=== PATIENT | female | born 1970 | race Caucasian/White ===

== ENCOUNTER 2019-07-08 11:03 | Emergency (ER) | payer OTHER ==
[~2019-07-08] VITALS: Ht 157.5 cm; Wt 56.8 kg
[2019-07-08] MEDS ORDERED: ondansetron 4mg rapidly disintigrating tab PO ONE (11:45)
[2019-07-08] MEDS ORDERED: HYDROcodone/acetaminophen 5mg/325mg tablet PO ONE (13:35)
[2019-07-08] MEDS ORDERED: PENI500T2 PO (13:44)
[2019-07-08] MEDS ORDERED: CHLO473M3 PO (13:44)
[2019-07-08 14:06] VITALS: BP 120/74
== END 2019-07-08 14:08 | disposition home or self-care (01) ==
LOC: ER 11:04
DX: S02.5XXA Fracture of tooth (traumatic), initial encounter for closed fracture (principal); S06.9X0A Unspecified intracranial injury without loss of consciousness, initial encounter; R11.0 Nausea; R61 Generalized hyperhidrosis; Z98.890 Other specified postprocedural states; Z79.2 Long term (current) use of antibiotics; Z79.899 Other long term (current) drug therapy; X58.XXXA Exposure to other specified factors, initial encounter; Y93.89 Activity, other specified; Y92.89 Other specified places as the place of occurrence of the external cause; Y99.8 Other external cause status
CPT/HCPCS: 99283

== ENCOUNTER 2020-01-01 16:22 | Inpatient (IN) | payer OTHER ==
[2020-01-01] VITALS (8 sets, daily range): BP systolic 132–149; BP diastolic 68–80
[~2020-01-01] VITALS: Ht 160 cm; Wt 56.8 kg
[~2020-01-01 16:22] MED LIST: CHLO473M3 PO
[2020-01-01] MEDS ORDERED: ketorolac trometh. 30mg/ml inj. IV ONE (18:35)
[2020-01-01] MEDS ORDERED: fentaNYL/PF 50MCG/1 ML 2ML syringe IV ONE (18:35)
[2020-01-01] MEDS ORDERED: diphenhydrAMINE 50 mg/ml inj IV ONE (18:35)
[2020-01-01] MEDS ORDERED: metoclopramide 5 mg/ml inj IV ONE (18:35)
[2020-01-01] MEDS ORDERED: normal saline 1000ML IV soln IVB ONE ×2 (18:35)
[2020-01-01] MEDS ORDERED: ceFOXitin 2GM-NS 100mL ADDvant 100 ML IV ONE (19:00)
[2020-01-01 19:22] LABS: BASOPHILS % (AUTO) 0.1 % (0-1); EOSINOPHILS % (AUTO) 0 % (0-6); HEMATOCRIT 35.9 % (35.0-45.0); HEMOGLOBIN 11.1 g/dl (12.0-16.0); LYMPHOCYTES # (AUTO) 0.6 X10'3 (1.1-4.8); LYMPHOCYTES % (AUTO) 2.8 % (21-51); MEAN CORPUSCULAR HEMOGLOBIN 22.1 PG (27.0-31.0); MEAN CORPUSCULAR HGB CONC 30.9 g/dL (33.0-36.5); MEAN CORPUSCULAR VOLUME 71.5 FL (78-98); MONOCYTES # (AUTO) 0.7 X10'3 (0-0.9); MONOCYTES % (AUTO) 3.1 % (2-12); NEUTROPHILS # (AUTO) 20.2 X10'3 (1.8-7.7); PLATELET COUNT 502 X10'3 (140-440); RED BLOOD COUNT 5.02 X10'6 (4.20-5.60); RED CELL DISTRIBUTION WIDTH 17.2 % (11.5-14.5); WHITE BLOOD COUNT 21.5 X10'3 (4.5-11.0)
[2020-01-01] MEDS ORDERED: ringers solution, lacted 1,000 ML IV SCH (19:30)
[2020-01-01] MEDS ORDERED: morphine 4 MG/ML inj SYRINge IV PRN (19:30)
[2020-01-01] MEDS ORDERED: hydrALAZINE 20mg/ml inj. IV PRN (19:30)
[2020-01-01] MEDS ORDERED: fentaNYL/PF 50MCG/1 ML 2ML syringe IV PRN (19:30)
[2020-01-01] MEDS ORDERED: ondansetron/PF 4mg/2ml inj IV PRN (19:30)
[2020-01-01] MEDS ORDERED: morphine 2 MG/ML inj. syringe IV PRN (19:30)
[2020-01-01] MEDS ORDERED: labetalol 20mg/4ml (5mg/ml) syringe IV PRN (19:30)
[2020-01-01] MEDS ORDERED: ringers solution, lacted 1,000 ML IV ONE (19:30)
[2020-01-01 19:40] LABS: ALANINE AMINOTRANSFERASE 26 U/L (12-78); ALBUMIN 3.8 G/DL (3.4-5.0); ALKALINE PHOSPHATASE 64 IU/L (46-116); ANION GAP 9 (8-16); ASPARTATE AMINO TRANSFERASE 21 U/L (10-37); BILIRUBIN,TOTAL 1.2 MG/DL (0.1-1.0); BLOOD UREA NITROGEN 20 MG/DL (7-18); BUN/CREATININE RATIO 26.7 (6.6-38.0); CALCIUM 9.4 MG/DL (8.5-10.1); CHLORIDE 95 MMOL/L (99-107); CREATININE 0.75 MG/DL (0.40-0.90); GLUCOSE 161 MG/DL (70-104); POTASSIUM 3.6 MMOL/L (3.5-5.1); SODIUM 129 MMOL/L (135-145); TOTAL CARBON DIOXIDE 24.9 MMOL/L (24-32); TOTAL PROTEIN 7.8 G/DL (6.4-8.2); eGFR 82 ML/MIN
[2020-01-01 19:47] LABS: LIPASE 1444 U/L (73-393)
[2020-01-01] MEDS ORDERED: acetaminophen 325mg tablet PO PRN (19:50)
[2020-01-01] MEDS ORDERED: potassium CL 10mEq/100ml bag 100 ML IV PRN ×2 (19:50)
[2020-01-01] MEDS ORDERED: LIDOcaine 2% 10ml TOPICAL JELLY (Urojet) TP ONE (19:50)
[2020-01-01] MEDS ORDERED: magnesium Cl slow-release 64mg tablet PO PRN (19:50)
[2020-01-01] MEDS ORDERED: magnesium 2GM in 50ml NS 50 ML IV PRN (19:50)
[2020-01-01] MEDS ORDERED: potassium Cl 20 mEq SR tablet PO PRN (19:50)
[2020-01-01] MEDS ORDERED: magnesium 4gm in 100ml NS 100 ML IV PRN (19:50)
[2020-01-01 20:06] LABS: URINE HCG NEGATIVE (NEG)
[2020-01-01 20:13] LABS: CLARITY,URINE SLIGHTLY CLOUDY (Clear); COLOR,URINE YELLOW (Yellow); GLUCOSE, URINE NEGATIVE (Neg); KETONES,URINE 15 mg/dl (Neg); LEUKOCYTE ESTERASE ,URINE NEGATIVE (Neg); NITRITES, URINE NEGATIVE (Neg); OCCULT BLOOD,URINE NEGATIVE (Neg); PROTEIN,URINE 30 mg/dl (Neg); UROBILINOGEN,URINE 0.2 E.U/dL (0.2-1.0)
[2020-01-01 20:18] LABS: UA COLLECTION TYPE FOLEY CATH
[2020-01-01 20:41] LABS: BACTERIA,URINE FEW /HPF (Neg); RBC,URINE NONE SEEN /HPF (0-2); SQUAMOUS EPITHELIAL CELL,UR MANY /LPF (FEW); WBC,URINE 0-4 /HPF (0-4)
[2020-01-01] MEDS ORDERED: fentaNYL/PF 50MCG/1 ML 2ML syringe ONE ×2 (21:15→22:09)
[2020-01-01] MEDS ORDERED: midazolam 2 mg/2 ml injection ONE (21:15)
[2020-01-01] MEDS ORDERED: glycopyrrolate 0.2mg/ml inj ONE (21:35)
[2020-01-01] MEDS ORDERED: neostigmine methylsulfate 1 MG/ML 10ml vial ONE (21:35)
[2020-01-01] MEDS ORDERED: sevoflurane 250ml liquid IH ONE (21:35)
[2020-01-01] MEDS ORDERED: sugammadex 200mg/2ml injection IV ONE (22:12)
[2020-01-01] MEDS ORDERED: ondansetron/PF 4mg/2ml inj ONE (22:14)
[2020-01-01] MEDS ORDERED: LIDOcaine 2% (20mg/ml) 5ml vial ONE (22:14)
[2020-01-01] MEDS ORDERED: rocuronium 10mg/ml inj IV ONE (22:14)
[2020-01-01] MEDS ORDERED: propofol inj 20 ML IV ONE (22:14)
[2020-01-01] MEDS ORDERED: dexamethasone sod phosphate 4mg/ml inj. ONE (22:14)
[2020-01-01] MEDS ORDERED: ATI1T PO (22:23)
--- NOTE | 2020-01-01 22:47 | NUR ---
RECEIVED FROM OR VIA BED WITH OHTF ACCOMPANIED BY ANESTHESIOLOGIST DR ANTONIO, REPORT GIVEN. PT DROWSY BUT AROUSES WITH NO COMPLAINT OF PAIN. 20 GAUGE PIV R AC PATENT AND RUNNING LR AT 100 ML/HR. [place] DRESSING CDI, ABD SOFT, PPULSES PALPABLE, BRISK CAP REFILL, HAMMOND, VSS, SCDS APPLIED, F/C DRAINING CLEAR YELLOW FLUID. RESTING COMFORTABLY
[2020-01-01] MEDS: fentaNYL/PF 50MCG/1 ML 2ML syringe IV PRN ×2 (23:17→23:24)
--- NOTE | 2020-01-01 23:37 | NUR ---
TRANSFERRED VIA BED WITH OHTF ACCOMPANIED BY MYSELF, REPORT GIVEN. PT AWAKE AND ALERT WITH COMPLAINT OF PAIN AT LEVEL 5. 20 GAUGE PIV R AC PATENT AND RUNNING LR AT 100 ML/HR. [place] DRESSING CDI, ABD SOFT, PPULSES PALPABLE, BRISK CAP REFILL, HAMMOND, VSS, SCDS APPLIED, F/C DRAINING CLEAR YELLOW FLUID. LEFT IN CARE OF CHINA AMEZQUITA
[2020-01-02] VITALS (9 sets, daily range): BP systolic 127–148; BP diastolic 65–84
[2020-01-02] MEDS: HYDROmorphone inj. 0.5 MG/0.5 ML DISP.SYRIN IV PRN ×3 (00:18→08:04)
[2020-01-02] MEDS: pantoprazole 40MG/NS 100ML BAG 100 ML IV SCH ×6 (00:18→21:34)
[2020-01-02] MEDS: K and/or MAG REPLACEMENT MC SCH ×3 (00:28→20:00)
[2020-01-02] MEDS: ondansetron/PF 4mg/2ml inj IV PRN ×3 (03:53→18:46)
[2020-01-02] MEDS: normal saline 1000ml 1,000 ML IV SCH ×4 (03:58→21:32)
--- NOTE | 2020-01-02 06:31 | NUR ---
Problems reprioritized. Patient report given, questions answered & plan of care reviewed with BIA HAINES.
--- NOTE | 2020-01-02 06:41 | NUR ---
Patient in room ORTHO 4016. I have received report from BIA ATKINSON and had the opportunity to ask questions and assume patient care.
[2020-01-02 06:47] LABS: BASOPHILS % (AUTO) 0.1 % (0-1); EOSINOPHILS % (AUTO) 0 % (0-6); HEMATOCRIT 28.6 % (35.0-45.0); LYMPHOCYTES # (AUTO) 0.5 X10'3 (1.1-4.8); LYMPHOCYTES % (AUTO) 2.7 % (21-51); MEAN CORPUSCULAR HEMOGLOBIN 22.4 PG (27.0-31.0); MEAN CORPUSCULAR HGB CONC 31.4 g/dL (33.0-36.5); MEAN CORPUSCULAR VOLUME 71.4 FL (78-98); MEAN PLATELET VOLUME 7.8 FL (7.4-10.4); MONOCYTES # (AUTO) 0.7 X10'3 (0-0.9); NEUTROPHILS # (AUTO) 16.5 X10'3 (1.8-7.7); NEUTROPHILS % (AUTO) 93.2 % (42-75); PLATELET COUNT 378 X10'3 (140-440); RED CELL DISTRIBUTION WIDTH 17.1 % (11.5-14.5); WHITE BLOOD COUNT 17.7 X10'3 (4.5-11.0)
[2020-01-02 07:10] LABS: ALANINE AMINOTRANSFERASE 29 U/L (12-78); ALBUMIN 2.7 G/DL (3.4-5.0); ALBUMIN/GLOBULIN RATIO 0.8 (1.1-1.5); ALKALINE PHOSPHATASE 44 IU/L (46-116); ANION GAP 7 (8-16); ASPARTATE AMINO TRANSFERASE 32 U/L (10-37); BILIRUBIN,TOTAL 0.7 MG/DL (0.1-1.0); BLOOD UREA NITROGEN 13 MG/DL (7-18); BUN/CREATININE RATIO 23.2 (6.6-38.0); CALCIUM 7.7 MG/DL (8.5-10.1); CHLORIDE 101 MMOL/L (99-107); CREATININE 0.56 MG/DL (0.40-0.90); GLUCOSE 149 MG/DL (70-104); MAGNESIUM 1.7 MG/DL (1.5-2.4); POTASSIUM 3.5 MMOL/L (3.5-5.1); SODIUM 134 MMOL/L (135-145); TOTAL CARBON DIOXIDE 25.6 MMOL/L (24-32); eGFR > 90 ML/MIN
--- NOTE | 2020-01-02 08:32 | NUR ---
Page Sent PAGER ID: [phone] MESSAGE: YANCY [id number]: [id number] [address]...ZOFRAN NOT WORKING, PT STILL NAUSEOUS, CAN I GET AN ORDER FOR ANOTHER ANTI-NAUSEA MED? THANK YOU
[2020-01-02] MEDS ORDERED: proCHLORperazine 10 MG/2 ml inj IV PRN (08:45)
[2020-01-02] MEDS ORDERED: acetaminophen 325mg tablet PO PRN (10:40)
--- NOTE | 2020-01-02 11:13 | NUR ---
Student documentation: I have reviewed all interventions, assessments performed and documented by Rizwana Urbano [place]. Student Medication Administration: For this medication-pass time frame, all medication were reviewed, dispensed, administered and documented per hospital policy by Rizwana LÓPEZ [facility].
[2020-01-02] MEDS: HYDROmorphone 1 mg/ml syringe IV PRN ×3 (12:16→22:25)
--- NOTE | 2020-01-02 15:24 | NUR ---
Problems reprioritized. Patient report given, questions answered & plan of care reviewed with BIA Carlson on surgical unit. Pt belongings gathered and pt was wheeled to surgical unit in stable condition.
--- NOTE | 2020-01-02 16:00 | NUR ---
Pt. transfer to surgical unit. Vitals taken, pt. repositioned and made comfortable. Water provided and call light put in reach. Pt. orientated to room and a physical assessment completed by primary RN.
--- NOTE | 2020-01-02 17:30 | NUR ---
Pt. stated SOB. She stated it was related to pain, but requested for oxygen to be placed on her. Explained to pt. that 02 is a medication and that we cannot just place it on her. Took vital signs however and they were stable. No oxygen placed on pt. On reassessment after pain medication, pt. stated her SOB had gone away.
--- NOTE | 2020-01-02 18:15 | NUR ---
Gave report to Sanjeev AMEZQUITA. Pt. in room in her bed at this time.
--- NOTE | 2020-01-02 18:39 | NUR ---
Patient in room JENNIFER 345. I have received report from BIA Dan and had the opportunity to ask questions and assume patient care.
[2020-01-02] MEDS: LORazepam 2 mg/ml vial IV PRN (23:03)
[2020-01-03] MEDS: pantoprazole 40MG/NS 100ML BAG 100 ML IV SCH ×6 (01:00→22:54)
[2020-01-03] MEDS: normal saline 1000ml 1,000 ML IV SCH ×3 (02:11→21:49)
[2020-01-03] MEDS: HYDROmorphone 1 mg/ml syringe IV PRN ×4 (04:04→22:55)
[2020-01-03] MEDS: ondansetron/PF 4mg/2ml inj IV PRN ×3 (04:12→17:56)
[2020-01-03 05:11] LABS: ALANINE AMINOTRANSFERASE 28 U/L (12-78); ALBUMIN 2.4 G/DL (3.4-5.0); ALBUMIN/GLOBULIN RATIO 0.8 (1.1-1.5); ALKALINE PHOSPHATASE 48 IU/L (46-116); ANION GAP 7 (8-16); ASPARTATE AMINO TRANSFERASE 52 U/L (10-37); BILIRUBIN,TOTAL 0.5 MG/DL (0.1-1.0); BLOOD UREA NITROGEN 9 MG/DL (7-18); BUN/CREATININE RATIO 20.5 (6.6-38.0); CALCIUM 7.6 MG/DL (8.5-10.1); CHLORIDE 103 MMOL/L (99-107); CREATININE 0.44 MG/DL (0.40-0.90); GLUCOSE 110 MG/DL (70-104); LIPASE 73 U/L (73-393); MAGNESIUM 1.6 MG/DL (1.5-2.4); POTASSIUM 3.2 MMOL/L (3.5-5.1); SODIUM 134 MMOL/L (135-145); TOTAL CARBON DIOXIDE 24.3 MMOL/L (24-32); TOTAL PROTEIN 5.6 G/DL (6.4-8.2); eGFR > 90 ML/MIN
[2020-01-03 05:27] LABS: BASOPHILS # (AUTO) 0.1 X10'3 (0-0.2); BASOPHILS % (AUTO) 0.4 % (0-1); EOSINOPHILS # (AUTO) 0.1 X10'3 (0-0.9); EOSINOPHILS % (AUTO) 0.7 % (0-6); HEMATOCRIT 24.4 % (35.0-45.0); HEMOGLOBIN 7.6 g/dl (12.0-16.0); LYMPHOCYTES # (AUTO) 0.9 X10'3 (1.1-4.8); LYMPHOCYTES % (AUTO) 7.4 % (21-51); MEAN CORPUSCULAR HEMOGLOBIN 22.5 PG (27.0-31.0); MEAN CORPUSCULAR HGB CONC 31.2 g/dL (33.0-36.5); MEAN CORPUSCULAR VOLUME 72.1 FL (78-98); MEAN PLATELET VOLUME 8.2 FL (7.4-10.4); MONOCYTES # (AUTO) 0.6 X10'3 (0-0.9); MONOCYTES % (AUTO) 5.3 % (2-12); NEUTROPHILS # (AUTO) 10.1 X10'3 (1.8-7.7); NEUTROPHILS % (AUTO) 86.2 % (42-75); PLATELET COUNT 324 X10'3 (140-440); RED BLOOD COUNT 3.38 X10'6 (4.20-5.60); RED CELL DISTRIBUTION WIDTH 17.5 % (11.5-14.5); WHITE BLOOD COUNT 11.8 X10'3 (4.5-11.0)
--- NOTE | 2020-01-03 06:19 | NUR ---
Problems reprioritized. Patient report given, questions answered & plan of care reviewed with BIA Paez.
--- NOTE | 2020-01-03 06:30 | NUR ---
Patient in room JENNIFER 345. I have received report from BIA Pace and had the opportunity to ask questions and assume patient care.
[2020-01-03 07:00] VITALS: BP 136/83
[2020-01-03] MEDS: K and/or MAG REPLACEMENT MC SCH ×2 (07:31→20:00)
[2020-01-03] MEDS: potassium Cl 20 mEq SR tablet PO PRN ×3 (07:35→17:02)
[2020-01-03 10:14] LABS: HEMATOCRIT 23.9 % (35.0-45.0); HEMOGLOBIN 7.3 g/dl (12.0-16.0); MEAN CORPUSCULAR HGB CONC 30.6 g/dL (33.0-36.5); MEAN CORPUSCULAR VOLUME 71.8 FL (78-98); MEAN PLATELET VOLUME 7.6 FL (7.4-10.4); PLATELET COUNT 315 X10'3 (140-440); RED BLOOD COUNT 3.32 X10'6 (4.20-5.60); RED CELL DISTRIBUTION WIDTH 17.3 % (11.5-14.5)
[2020-01-03 10:46] VITALS: BP 130/83
[2020-01-03 11:00] VITALS: BP 130/83
[2020-01-03] MEDS: LORazepam 2 mg/ml vial IV PRN (13:18)
[2020-01-03 16:19] LABS: HEMATOCRIT 23.8 % (35.0-45.0); HEMOGLOBIN 7.5 g/dl (12.0-16.0); MEAN CORPUSCULAR HEMOGLOBIN 22.7 PG (27.0-31.0); MEAN CORPUSCULAR HGB CONC 31.5 g/dL (33.0-36.5); MEAN CORPUSCULAR VOLUME 72.1 FL (78-98); MEAN PLATELET VOLUME 7.7 FL (7.4-10.4); PLATELET COUNT 306 X10'3 (140-440); RED CELL DISTRIBUTION WIDTH 17.1 % (11.5-14.5); WHITE BLOOD COUNT 11.1 X10'3 (4.5-11.0)
--- NOTE | 2020-01-03 16:25 | NUR ---
Student documentation: I have reviewed all interventions, assessments performed and documented by Renee KIRK from [facility].
--- NOTE | 2020-01-03 16:26 | NUR ---
Student documentation: I have reviewed all interventions, assessments performed and documented by Benoit KIRK from [facility].
--- NOTE | 2020-01-03 18:31 | NUR ---
Problems reprioritized. Patient report given, questions answered & plan of care reviewed with Pily Nascimento RN.
--- NOTE | 2020-01-03 18:35 | NUR ---
Patient in room JENNIFER 345. I have received report from NICOLAS AMEZQUITA and had the opportunity to ask questions and assume patient care.
[2020-01-04] VITALS (8 sets, daily range): BP systolic 139–157; BP diastolic 81–91
[2020-01-04] MEDS: ondansetron/PF 4mg/2ml inj IV PRN ×2 (03:41→17:27)
[2020-01-04] MEDS: HYDROmorphone 1 mg/ml syringe IV PRN ×4 (03:45→21:52)
[2020-01-04] MEDS: pantoprazole 40MG/NS 100ML BAG 100 ML IV SCH ×4 (04:26→21:53)
[2020-01-04 06:00] LABS: BASOPHILS % (AUTO) 0.4 % (0-1); EOSINOPHILS # (AUTO) 0.1 X10'3 (0-0.9); EOSINOPHILS % (AUTO) 1.4 % (0-6); LYMPHOCYTES # (AUTO) 0.6 X10'3 (1.1-4.8); LYMPHOCYTES % (AUTO) 5.4 % (21-51); MEAN CORPUSCULAR HEMOGLOBIN 22.8 PG (27.0-31.0); MEAN CORPUSCULAR HGB CONC 31.9 g/dL (33.0-36.5); MEAN CORPUSCULAR VOLUME 71.7 FL (78-98); MEAN PLATELET VOLUME 7.9 FL (7.4-10.4); MONOCYTES # (AUTO) 0.7 X10'3 (0-0.9); MONOCYTES % (AUTO) 6.7 % (2-12); NEUTROPHILS # (AUTO) 8.8 X10'3 (1.8-7.7); NEUTROPHILS % (AUTO) 86.1 % (42-75); PLATELET COUNT 312 X10'3 (140-440); RED BLOOD COUNT 3.07 X10'6 (4.20-5.60); RED CELL DISTRIBUTION WIDTH 17.2 % (11.5-14.5); WHITE BLOOD COUNT 10.2 X10'3 (4.5-11.0)
[2020-01-04 06:13] LABS: ALANINE AMINOTRANSFERASE 32 U/L (12-78); ALBUMIN 2.2 G/DL (3.4-5.0); ALBUMIN/GLOBULIN RATIO 0.6 (1.1-1.5); ALKALINE PHOSPHATASE 48 IU/L (46-116); ANION GAP 6 (8-16); ASPARTATE AMINO TRANSFERASE 46 U/L (10-37); BILIRUBIN,TOTAL 0.6 MG/DL (0.1-1.0); BLOOD UREA NITROGEN 8 MG/DL (7-18); CALCIUM 7.7 MG/DL (8.5-10.1); CHLORIDE 105 MMOL/L (99-107); CREATININE 0.42 MG/DL (0.40-0.90); GLUCOSE 102 MG/DL (70-104); MAGNESIUM 1.9 MG/DL (1.5-2.4); POTASSIUM 3.5 MMOL/L (3.5-5.1); SODIUM 136 MMOL/L (135-145); TOTAL CARBON DIOXIDE 24.9 MMOL/L (24-32); TOTAL PROTEIN 5.6 G/DL (6.4-8.2); eGFR > 90 ML/MIN
--- NOTE | 2020-01-04 06:20 | NUR ---
Problems reprioritized. Patient report given, questions answered & plan of care reviewed with MELANIA AMEZQUITA.
--- NOTE | 2020-01-04 06:30 | NUR ---
PAGED DR. ANGELES TO INFORM CRITICAL H&H 7.0 AND 22.0 AWAITING CALL BACK FROM .
--- NOTE | 2020-01-04 06:49 | NUR ---
DR. ANGELES CALLED BACK WITH INSTRUCTION TO CALL HOSPITALIST IN AM WHETHER HE WANTS HER TRANSFUSED OR NOT. AM RN MADE AWARE TO ASK AM HOSPITALIST.
--- NOTE | 2020-01-04 07:10 | NUR ---
PAGER ID: [phone] MESSAGE: [phone] Alvaro S: H&H 7.0/.0 thanks! suri [phone]
[2020-01-04] MEDS: K and/or MAG REPLACEMENT MC SCH ×2 (07:11→19:43)
[2020-01-04] MEDS: LORazepam 2 mg/ml vial IV PRN (09:48)
[2020-01-04] MEDS: normal saline 1000ml 1,000 ML IV SCH ×2 (09:53→19:45)
--- NOTE | 2020-01-04 18:00 | NUR ---
Student Medication Administration: For this medication-pass time frame, all medication were reviewed, dispensed, administered and documented per hospital policy by SN EMIL. Student documentation: I have reviewed and agree with all interventions, assessments performed and documented by SN EMIL.
--- NOTE | 2020-01-04 18:15 | NUR ---
Problems reprioritized. Patient report given, questions answered & plan of care reviewed with BIA MONTEZ.
--- NOTE | 2020-01-04 18:43 | NUR ---
Patient in room JENNIFER 345. I have received report from BIA Tong and had the opportunity to ask questions and assume patient care.
[2020-01-04 19:46] LABS: HEMATOCRIT 25.8 % (35.0-45.0); HEMOGLOBIN 8.2 g/dl (12.0-16.0); MEAN CORPUSCULAR HEMOGLOBIN 23.7 PG (27.0-31.0); MEAN CORPUSCULAR HGB CONC 31.8 g/dL (33.0-36.5); MEAN CORPUSCULAR VOLUME 74.6 FL (78-98); MEAN PLATELET VOLUME 7.6 FL (7.4-10.4); PLATELET COUNT 299 X10'3 (140-440); RED BLOOD COUNT 3.46 X10'6 (4.20-5.60); RED CELL DISTRIBUTION WIDTH 19.1 % (11.5-14.5); WHITE BLOOD COUNT 10.3 X10'3 (4.5-11.0)
[2020-01-05 00:19] VITALS: BP 144/85
[2020-01-05] MEDS: HYDROmorphone 1 mg/ml syringe IV PRN ×3 (01:53→10:51)
[2020-01-05] MEDS: ondansetron/PF 4mg/2ml inj IV PRN ×2 (02:00→10:48)
[2020-01-05] MEDS: pantoprazole 40MG/NS 100ML BAG 100 ML IV SCH ×3 (02:04→08:38)
[2020-01-05] MEDS: normal saline 1000ml 1,000 ML IV SCH (04:51)
[2020-01-05 04:54] LABS: BASOPHILS % (AUTO) 0.3 % (0-1); EOSINOPHILS # (AUTO) 0.2 X10'3 (0-0.9); EOSINOPHILS % (AUTO) 2.1 % (0-6); HEMATOCRIT 23.9 % (35.0-45.0); HEMOGLOBIN 7.6 g/dl (12.0-16.0); LYMPHOCYTES # (AUTO) 0.7 X10'3 (1.1-4.8); MEAN CORPUSCULAR HEMOGLOBIN 23.7 PG (27.0-31.0); MEAN CORPUSCULAR VOLUME 74.1 FL (78-98); MEAN PLATELET VOLUME 7.6 FL (7.4-10.4); MONOCYTES # (AUTO) 0.9 X10'3 (0-0.9); MONOCYTES % (AUTO) 9.5 % (2-12); NEUTROPHILS % (AUTO) 81.1 % (42-75); PLATELET COUNT 296 X10'3 (140-440); RED BLOOD COUNT 3.22 X10'6 (4.20-5.60); WHITE BLOOD COUNT 9.8 X10'3 (4.5-11.0)
[2020-01-05 05:17] LABS: ALANINE AMINOTRANSFERASE 32 U/L (12-78); ALBUMIN 2.1 G/DL (3.4-5.0); ALBUMIN/GLOBULIN RATIO 0.6 (1.1-1.5); ALKALINE PHOSPHATASE 58 IU/L (46-116); ANION GAP 9 (8-16); ASPARTATE AMINO TRANSFERASE 30 U/L (10-37); BILIRUBIN,TOTAL 0.8 MG/DL (0.1-1.0); BLOOD UREA NITROGEN 7 MG/DL (7-18); BUN/CREATININE RATIO 18.9 (6.6-38.0); CALCIUM 7.4 MG/DL (8.5-10.1); CHLORIDE 103 MMOL/L (99-107); CREATININE 0.37 MG/DL (0.40-0.90); GLUCOSE 101 MG/DL (70-104); MAGNESIUM 1.8 MG/DL (1.5-2.4); POTASSIUM 3.1 MMOL/L (3.5-5.1); SODIUM 135 MMOL/L (135-145); TOTAL CARBON DIOXIDE 23.5 MMOL/L (24-32); TOTAL PROTEIN 5.5 G/DL (6.4-8.2); eGFR > 90 ML/MIN
[2020-01-05 05:49] LABS: ANISOCYTOSIS 2+; HYPOCHROMASIA 1+; MICROCYTOSIS 1+; PLATELET ESTIMATE NORMAL; POLYCHROMASIA FEW
--- NOTE | 2020-01-05 06:10 | NUR ---
Patient in room JENNIFER 345. I have received report from BIA Benson and had the opportunity to ask questions and assume patient care.
--- NOTE | 2020-01-05 06:25 | NUR ---
Problems reprioritized. Patient report given, questions answered & plan of care reviewed with BIA Mccullough.
[2020-01-05 06:30] VITALS: BP 140/82
--- NOTE | 2020-01-05 06:42 | NUR ---
Problems reprioritized. Patient report given, questions answered & plan of care reviewed with BIA Marshall.
[2020-01-05] MEDS: K and/or MAG REPLACEMENT MC SCH ×2 (08:04→20:00)
[2020-01-05] MEDS ORDERED: magnesium 2GM in 50ml NS 50 ML IV PRN (08:05)
[2020-01-05] MEDS ORDERED: potassium CL 10mEq/100ml bag 100 ML IV PRN (08:05)
[2020-01-05] MEDS ORDERED: potassium Cl 20 mEq SR tablet PO PRN (08:05)
[2020-01-05] MEDS ORDERED: magnesium 4gm in 100ml NS 100 ML IV PRN (08:05)
[2020-01-05] MEDS ORDERED: magnesium Cl slow-release 64mg tablet PO PRN (08:05)
[2020-01-05] MEDS: potassium Cl 20 mEq SR tablet PO PRN ×3 (08:38→17:09)
[2020-01-05 11:00] VITALS: BP 154/86
[2020-01-05] MEDS ORDERED: oxyCODONE/APAP 5-325mg tablet PO PRN (11:40)
[2020-01-05] MEDS ORDERED: pantoprazole 40 MG vial IV ONE (12:05)
[2020-01-05] MEDS: oxyCODONE/APAP 10/325mg tablet PO PRN ×2 (14:51→20:48)
--- NOTE | 2020-01-05 18:10 | NUR ---
Patient in room JENNIFER 345. I have received report from Joanna Lopez and had the opportunity to ask questions and assume patient care. Addendum: 01/06/20 at 0253 by Sadia Rojas RN Amended: Links added.
[2020-01-05 18:30] VITALS: BP 126/79
[2020-01-05] MEDS ORDERED: K and/or MAG REPLACEMENT MC SCH (20:00)
--- NOTE | 2020-01-05 20:50 | NUR ---
pt c/o abd pain medicated with po pain pill for this and no other complaints at this time.
[2020-01-06] VITALS: BP 135/80
--- NOTE | 2020-01-06 | NUR ---
up to brp for loose liq yellow stool and to void tolerated well. teaching done earlier in shift 2030 regarding is use and the importance to use it. also stressed importance of ambulation with the pt.
--- NOTE | 2020-01-06 01:15 | NUR ---
pt had another yellow liquid stool and had voided in hat 200 cc clear yellow urine pt tolerated well.
[2020-01-06] MEDS: oxyCODONE/APAP 10/325mg tablet PO PRN ×4 (03:11→21:31)
--- NOTE | 2020-01-06 03:15 | NUR ---
0pt c/o pain medicated with po perocet for this and teaching done and post op care and again importance of ambulation. did ambulate one lap tonight.
[2020-01-06 05:21] LABS: BASOPHILS # (AUTO) 0.1 X10'3 (0-0.2); BASOPHILS % (AUTO) 0.6 % (0-1); EOSINOPHILS # (AUTO) 0.3 X10'3 (0-0.9); EOSINOPHILS % (AUTO) 2.4 % (0-6); HEMATOCRIT 27.8 % (35.0-45.0); HEMOGLOBIN 8.9 g/dl (12.0-16.0); MEAN CORPUSCULAR HEMOGLOBIN 23.9 PG (27.0-31.0); MEAN CORPUSCULAR VOLUME 74.8 FL (78-98); MEAN PLATELET VOLUME 7.7 FL (7.4-10.4); MONOCYTES # (AUTO) 1.4 X10'3 (0-0.9); NEUTROPHILS # (AUTO) 9.8 X10'3 (1.8-7.7); PLATELET COUNT 401 X10'3 (140-440); RED BLOOD COUNT 3.72 X10'6 (4.20-5.60); RED CELL DISTRIBUTION WIDTH 19.7 % (11.5-14.5); WHITE BLOOD COUNT 12.6 X10'3 (4.5-11.0)
[2020-01-06 05:42] LABS: ALANINE AMINOTRANSFERASE 33 U/L (12-78); ALBUMIN 2.5 G/DL (3.4-5.0); ALBUMIN/GLOBULIN RATIO 0.6 (1.1-1.5); ALKALINE PHOSPHATASE 73 IU/L (46-116); ANION GAP 7 (8-16); ASPARTATE AMINO TRANSFERASE 27 U/L (10-37); BILIRUBIN,TOTAL 0.6 MG/DL (0.1-1.0); BLOOD UREA NITROGEN 6 MG/DL (7-18); BUN/CREATININE RATIO 10.7 (6.6-38.0); CALCIUM 8.6 MG/DL (8.5-10.1); CHLORIDE 100 MMOL/L (99-107); CREATININE 0.56 MG/DL (0.40-0.90); GLUCOSE 110 MG/DL (70-104); MAGNESIUM 1.9 MG/DL (1.5-2.4); POTASSIUM 3.3 MMOL/L (3.5-5.1); SODIUM 136 MMOL/L (135-145); TOTAL CARBON DIOXIDE 28.7 MMOL/L (24-32); TOTAL PROTEIN 6.6 G/DL (6.4-8.2); eGFR > 90 ML/MIN
--- NOTE | 2020-01-06 06:23 | NUR ---
Problems reprioritized. Patient report given, questions answered & plan of care reviewed with KAREN AMEZQUITA. Addendum: 01/06/20 at 0627 by Sadia Rojas RN Amended: Links added.
--- NOTE | 2020-01-06 06:25 | NUR ---
Patient in room [facility]ENNIFER 345. I have received report from BIA Mccullough and had the opportunity to ask questions and assume patient care.
[2020-01-06 06:30] VITALS: BP 143/83
[2020-01-06] MEDS: K and/or MAG REPLACEMENT MC SCH ×2 (06:39→20:00)
[2020-01-06] MEDS: potassium Cl 20 mEq SR tablet PO PRN ×3 (07:35→21:25)
--- NOTE | 2020-01-06 09:15 | NUR ---
Problems reprioritized. Patient report given, questions answered & plan of care reviewed with BIA Pickett.
--- NOTE | 2020-01-06 09:39 | NUR ---
Patient in room JENNIFER 345. I have received report from Joanna AMEZQUITA and had the opportunity to ask questions and assume patient care.
[2020-01-06 11:00] VITALS: BP 149/80
--- NOTE | 2020-01-06 16:38 | NUR ---
Initial: Pt s/p ex lap for perforated gastric ulcer repair hx prior gastrojejunostomy anastomosis site from gastric bypass 2015 per EMR. LBM 01/05 advanced to regular diet today PO 50-75% full liquids prior. Will monitor for additional protein needs post-op. Rec: 1. continue regular diet 2. monitor for ONS needs 3. Bariatric multivitamin/mineral given gastric bypass hx 4. routine bowel care 5. wt per rx Addendum: 01/06/20 at [address] Amended: Links added.
--- NOTE | 2020-01-06 18:42 | NUR ---
Problems reprioritized. Patient report given, questions answered & plan of care reviewed with Sadia AMEZQUITA.
--- NOTE | 2020-01-06 18:50 | NUR ---
Patient in room [facility]ENNIFER 345. I have received report from JOHN AMEZQUITA and had the opportunity to ask questions and assume patient care. Addendum: 01/06/20 at 1851 by Sadia Rojas RN Amended: Links added.
[2020-01-06 19:00] VITALS: BP 147/92
--- NOTE | 2020-01-06 21:25 | NUR ---
pt c/ abd pain medicated with Percocet, for pain and kdur for last dose of potassium replacement done. post op care teaching done and assisted to brp to void with walker. tolerated fair.
--- NOTE | 2020-01-06 23:30 | NUR ---
pt resting eyes closed without changes at this time.
[2020-01-07] VITALS: BP 131/81
--- NOTE | 2020-01-07 01:30 | NUR ---
resting without changes.
--- NOTE | 2020-01-07 03:35 | NUR ---
pt awoke in abd pain and medicated for it with Po Percocet for this.
[2020-01-07] MEDS: oxyCODONE/APAP 10/325mg tablet PO PRN ×4 (03:39→22:05)
[2020-01-07 05:19] LABS: MAGNESIUM 1.8 MG/DL (1.5-2.4)
--- NOTE | 2020-01-07 05:42 | NUR ---
pt resting without changes.
--- NOTE | 2020-01-07 06:05 | NUR ---
Patient in room JENNIFER 345B. I have received report from BIA MESA and had the opportunity to ask questions and assume patient care.
--- NOTE | 2020-01-07 06:37 | NUR ---
Problems reprioritized. Patient report given, questions answered & plan of care reviewed with Rose Lopez. Addendum: 01/07/20 at 0637 by Sadia Rojas RN Amended: Links added.
[2020-01-07 07:00] VITALS: BP 141/94
[2020-01-07] MEDS: K and/or MAG REPLACEMENT MC SCH ×2 (08:00→20:00)
[2020-01-07 11:00] VITALS: BP 141/90
[2020-01-07 12:01] LABS: POTASSIUM 3.6 MMOL/L (3.5-5.1)
[2020-01-07] MEDS ORDERED: PANT-47 PO (13:15)
--- NOTE | 2020-01-07 14:54 | NUR ---
reviewed student nurse charting
--- NOTE | 2020-01-07 18:09 | NUR ---
Patient in room JENNIFER 345. I have received report from SHELIA AMEZQUITA and had the opportunity to ask questions and assume patient care. Addendum: 01/07/20 at 1809 by Sadia Rojas RN Amended: Links added.
--- NOTE | 2020-01-07 18:42 | NUR ---
Problems reprioritized. Patient report given, questions answered & plan of care reviewed with BIA MESA.
[2020-01-07 19:00] VITALS: BP 133/93
--- NOTE | 2020-01-07 22:08 | NUR ---
mecicated for c/o pain and top of incision draining scant serous fluid steristrips in place small dressing applied just over that nonadhesive
[2020-01-07] MEDS: LORazepam 2 mg/ml vial IV PRN (23:33)
--- NOTE | 2020-01-07 23:38 | NUR ---
pt c/o being anxious and medicated with 0.5mg iv ativan for this after she had completed ambulation in the kebede and using Is unit.
[2020-01-08] VITALS: BP 120/84
--- NOTE | 2020-01-08 01:49 | NUR ---
resting eyes closed no s&s of distress at this time.
--- NOTE | 2020-01-08 03:17 | NUR ---
Problems reprioritized. Patient report given, questions answered & plan of care reviewed with Mary Lopez and noted pt resting without s&s of distress at this time.. Addendum: 01/08/20 at 0318 by Sadia Rojas RN Amended: Links added. Addendum: 01/08/20 at 0320 by Sadia Rojas RN rthis report to Mary ramirez not on this pt. pt resting at this time. no s&s of distress.
[2020-01-08] MEDS: oxyCODONE/APAP 10/325mg tablet PO PRN ×2 (04:52→12:44)
--- NOTE | 2020-01-08 04:54 | NUR ---
pt medicated for pain at this time after assisting back to bed after using the brp and noted slight seepage to upper part of midline incision.
[2020-01-08 05:05] LABS: BASOPHILS # (AUTO) 0.1 X10'3 (0-0.2); BASOPHILS % (AUTO) 0.7 % (0-1); EOSINOPHILS # (AUTO) 0.4 X10'3 (0-0.9); EOSINOPHILS % (AUTO) 2.8 % (0-6); HEMATOCRIT 25.8 % (35.0-45.0); HEMOGLOBIN 8.1 g/dl (12.0-16.0); LYMPHOCYTES # (AUTO) 1.3 X10'3 (1.1-4.8); LYMPHOCYTES % (AUTO) 8.8 % (21-51); MEAN CORPUSCULAR HGB CONC 31.4 g/dL (33.0-36.5); MEAN CORPUSCULAR VOLUME 73.4 FL (78-98); MEAN PLATELET VOLUME 7.4 FL (7.4-10.4); MONOCYTES # (AUTO) 1.5 X10'3 (0-0.9); MONOCYTES % (AUTO) 10.8 % (2-12); NEUTROPHILS # (AUTO) 10.9 X10'3 (1.8-7.7); NEUTROPHILS % (AUTO) 76.9 % (42-75); PLATELET COUNT 406 X10'3 (140-440); RED BLOOD COUNT 3.52 X10'6 (4.20-5.60); RED CELL DISTRIBUTION WIDTH 19.9 % (11.5-14.5); WHITE BLOOD COUNT 14.2 X10'3 (4.5-11.0)
[2020-01-08 05:27] LABS: MAGNESIUM 1.9 MG/DL (1.5-2.4)
[2020-01-08 06:29] LABS: PLATELET ESTIMATE NORMAL
[2020-01-08 06:30] LABS: ANISOCYTOSIS 2+; MICROCYTOSIS 1+; SCHISTOCYTES FEW
--- NOTE | 2020-01-08 06:41 | NUR ---
Patient in room JENNIFER 345B. I have received report from BIA MESA and had the opportunity to ask questions and assume patient care.
[2020-01-08 07:00] VITALS: BP 139/87
[2020-01-08] MEDS: K and/or MAG REPLACEMENT MC SCH (07:01)
[2020-01-08 11:00] VITALS: BP 139/85
--- NOTE | 2020-01-08 20:12 | NUR ---
PATIENT STABLE AND APPROPRIATE FOR DISCHARGE, IV TAKEN OUT, MEDS SENT TO PREFERRED PHARMACY, EDUCATION GIVEN, ALL BELONGINGS SENT WITH PATIENT, PATIENT TAKEN TO LOBBY BY WHEELCHAIR TO AN AWAITING CAR WHERE FRIEND WILL TAKE PATIENT HOME
== END 2020-01-08 14:00 | disposition home or self-care (01) | DRG 329 ==
LOC: ER 16:23 → ED HOLD 19:48 → ORTHO 4S 23:40 → SUR 3N 01-02 15:30
PROVIDERS: ADMIT Family Medicine; ATTEND Family Medicine
PROC: 0DU947Z Supplement Duodenum with Autologous Tissue Substitute, Percutaneous Endoscopic Approach (ICD-10-PCS; principal; 2020-01-01 21:35)
PROC: 30233N1 Transfusion of Nonautologous Red Blood Cells into Peripheral Vein, Percutaneous Approach (ICD-10-PCS; 2020-01-04)
DX: K28.9 Gastrojejunal ulcer, unspecified as acute or chronic, without hemorrhage or perforation (principal); K63.1 Perforation of intestine (nontraumatic); K85.90 Acute pancreatitis without necrosis or infection, unspecified; D62 Acute posthemorrhagic anemia; E87.1 Hypo-osmolality and hyponatremia; E87.6 Hypokalemia; J45.909 Unspecified asthma, uncomplicated; Z98.84 Bariatric surgery status
CPT/HCPCS: 96374; 96375; 99285; Z7506; Z7508; 36415; 36430; 74176; 80053; 81001; 81025; 83605; 83690; 83735; 84132; 84145; 85008; 85025; 85027; 86885; 86900; 86901; 86920; 87081; 93005; A4618; A7000; C9113; C9399; G0378; J0694; J1100; J1170; J1200; J1885; J2001; J2060; J2250; J2405; J2704; J2710; J2765; J3010; J3490; J7030; J7120; P9016